=== PATIENT | male | born 1970 | race Caucasian/White ===

== ENCOUNTER 2017-04-03 08:00 | Outpatient (CLI) | payer MEDICAID | END 2017-04-03 08:01 | disposition home or self-care (01) | DX: Z13.6 Encounter for screening for cardiovascular disorders (principal) ==

== ENCOUNTER 2017-04-15 06:43 | Outpatient (CLI) | payer MEDICAID ==
--- NOTE | 2017-04-15 08:41 | MRI Preliminary Report ---
Exam: MRI Angio Brain W/O (MRA) IMPRESSION: Normal brain MRA. No stenoses or aneurysms. [facility] SITE ID: [id number]
--- NOTE | 2017-04-15 09:17 | MRI Report ---
EXAM MRA BRAIN EXAM DATE: 04/15/2017 08:11 AM. CLINICAL HISTORY: Family history of brain aneurysm. COMPARISON: None. TECHNIQUE: Multiplanar, multisequence MRA sequences of the brain were performed. Other: None. Post-pr ocessing: Multiplanar 3D MIP reconstructions. IV Contrast: None. FINDINGS: No evidence for cerebral aneurysm. No intracranial vertebrobasilar insufficiency. Patent distal internal carotid arteries. No proximal i ntracranial large artery flow-limiting stenosis, occlusion or filling defect. Patent anterior communi cating artery and bilateral posterior communicating arteries. The [place] appears to be comp lete. IMPRESSION: Normal brain MRA. No stenoses or aneurysms. [facility] Referring Provider Line: [phone] SITE ID: [id number]
== END 2017-04-15 06:44 | disposition home or self-care (01) ==
LOC: DI 06:43
PROVIDERS: ATTEND Nurse Practitioner Family
DX: Z82.0 Family history of epilepsy and other diseases of the nervous system (principal)
CPT/HCPCS: 70544

== ENCOUNTER 2020-10-24 13:42 | Outpatient (CLI) | payer MEDICAID ==
--- NOTE | 2020-10-24 13:58 | XRAY Report ---
PROCEDURE: Foot 3 View LT INDICATIONS: LEFT FOOT PAIN TECHNIQUE: 3 views of the foot were acquired. COMPARISON: None available FINDINGS: Bones: No acute fractures or dislocations. A remote appearing fracture fragment versus accessory oss icle can be seen along the lateral base of the first tarsometatarsal joint. No suspicious bony lesion s. An accessory ossicle is seen, an os trigonum. Soft tissues: No tibiotalar joint effusion. Achilles tendon appears normal. IMPRESSION: A cause of foot pain is identified on these plain films. Reviewed by: Dallas Delvalle MD on 10/24/2020 12:56 PM [facility] Approved by: Dallas Delvalle MD on 10/24/2020 12:56 PM [facility] Station ID: [id number]
== END 2020-10-24 23:59 | disposition home or self-care (01) ==
LOC: DI.S 13:42
PROVIDERS: ATTEND Physician Assistant Medical
DX: M79.672 Pain in left foot (principal)

== ENCOUNTER 2021-03-06 08:00 | Outpatient (CLI) | payer MEDICAID ==
[2021-03-06 15:14] LABS: BASOPHILS # (AUTO) 0.1 10^3/uL (0.0-0.1); BASOPHILS % (AUTO) 0.9 %; EOSINOPHILS # (AUTO) 0.1 10^3/uL (0.0-0.7); EOSINOPHILS % (AUTO) 1.4 %; HCT - HEMATOCRIT 43.2 % (42.0-52.0); HGB - HEMOGLOBIN 14.1 g/dL (14.0-18.0); LYMPHOCYTES # (AUTO) 2.3 10^3/uL (1.5-3.5); LYMPHOCYTES % (AUTO) 39.2 %; MEAN CORPUSCULAR HEMOGLOBIN 31.1 pg (27.0-31.0); MEAN CORPUSCULAR HGB CONC 32.6 g/dL (32.0-36.0); MEAN CORPUSCULAR VOLUME 95.4 fL (80.0-94.0); MEAN PLATELET VOLUME 9.6 fL (7.4-11.4); MONOCYTES # (AUTO) 0.8 10^3/uL (0.0-1.0); MONOCYTES % (AUTO) 13.2 %; NEUTROPHILS # (AUTO) 2.6 10^3/uL (1.5-6.6); NEUTROPHILS % (AUTO) 45.1 %; PLT - PLATELET COUNT 312 10^3/uL (130-450); RED BLOOD COUNT 4.53 10^6/uL (4.70-6.10); RED CELL DISTRIBUTION WIDTH 13.1 % (12.0-15.0); WHITE BLOOD COUNT 5.8 x10^3/uL (4.8-10.8)
[2021-03-06 15:36] LABS: CALCIUM 9.2 mg/dL (8.5-10.3); CREATININE 1.1 mg/dL (0.6-1.2); POTASSIUM 4.4 mmol/L (3.5-5.0)
== END 2021-03-06 08:01 | disposition home or self-care (01) ==
LOC: LAB.S 08:00
PROVIDERS: ATTEND Physician Assistant
DX: Z00.00 Encounter for general adult medical examination without abnormal findings (principal); Z82.0 Family history of epilepsy and other diseases of the nervous system; Z12.5 Encounter for screening for malignant neoplasm of prostate; Z13.6 Encounter for screening for cardiovascular disorders
CPT/HCPCS: 36415; 80048; 84153; 85025

== ENCOUNTER 2021-04-26 11:21 | Outpatient (CLI) | payer MEDICAID ==
[2021-04-28 23:10] VITALS: BP 110/70
--- NOTE | 2021-04-28 23:10 | SLEEP CARE CONSULTATION ---
Information from patient questionnaire entered by Alyson Alexander. I have reviewed and concur with the information entered by Alyson Alexander. This document represents the service I personally performed and the decisions made by me, Bull Mendoza MD, [facility]. History of Present Illness Service Date and Time: 04/26/2021 1121 Reason for Visit: New patient Chief Complaint: reports: Unrefreshed sleep, Snoring, Excessive daytime sleepiness, Observed pauses in breathing, Fatigue Date of Onset: 1 year Usual bedtime: midnight Time it takes to fall asleep: 30 minutes Snores at night: Yes Observed to quit breathing while asleep: Yes Sleeps alone due to snoring: No (not yet) Number of times waking at night: 3-5 Reasons for waking at night: reports: Bathroom, Other (unknown) Toss, Turn, or Twitch while sleeping: Yes Recalls having dreams: No Usually gets out of bed at: 0730 Feels refreshed in the morning: No Morning headache: Yes (an hour or two it resolves) Sleepy or fatigued during the day: Yes Ever fallen asleep while driving: Yes Takes day naps: Yes Dreams during day naps: No Prior sleep studies: No Additional HPI information: I had the pleasure of seeing Mr. Albarran today regarding the possibility of him having a sleep disorder. As you know, he is a 50 year old gentleman who complains of loud snore, frequent awakenings, unrefreshed sleep, morning headache, and excessive daytime sleepiness. He says that started last year, his snore has become louder. His has never seen him stop breathing. The patient tells me that he normally goes to bed around midnight, and it takes him approximately 30 minutes to fall asleep. He can recall waking up on the average of 3 - 5 times during the night. Most of the time he wakes up because of having to use the bathroom. He has woken up choking. There is a lot of tossing and turning in his sleep. No somniloquy (sleep talking) or somnambulism (sleep walking). Generally, there is no recollection of dreams. In the morning he us soriano gets up out of the bed around 7:30 a.m. not feeling refreshed nor rested. He usually does have a morning headache that lasts for 1 2 hours. During the day he complains of feeling sleepy and fatigued. His score on Ranger Sleepiness Scale is 12 out of 24. He never has fallen asleep while driving nor has had any accident due to sleepiness. He usually takes a 30-minute nap during the day. Upon falling asleep during the day he denies having vivid dreams. He reports having impaired concentration during the day. 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 Patient is and lives in [place]. Have you smoked in the past 12 months: No Alcohol use: No Caffeine use: Yes Caffeine amount and frequency: 2 cups coffee Family History Family history of sleep disordered breathing: No Family Hx Sleep Apnea: Father: Snoring Allergies and Home Medications Known drug allergies: No Drug allergies reviewed: Yes Home medication list reviewed: Yes Review of Systems Weight gain over past 5 years: 20 Cardiovascular: denies: high blood pressure, palpitations, chest pain, irregular heart rate or pulse, leg or foot swelling, have to sleep sitting up, other Respiratory: denies: shortness of breath, wheeze, sputum production, chronic cough, other Gastrointestinal: reports: diarrhea Urinary: reports: frequency Neurological: denies: headaches, seizure, head trauma, disorientation, speech dysfunction, gait or balance problems, fainting or unconsciousness, other Ear/Nose/Throat: reports: nasal congestion Endocrine: reports: sluggishness, too hot or cold Musculoskeletal: reports: neck pain Immunologic: reports: sneezing Physical Exam Vital signs obtained and entered by: Dr. Mendoza Blood Pressure: 110/70 Cuff size: regular Heart Rate: 56 O2 Saturation: 97 Height: 6 ft Weight: 180 lb Body Mass Index: 24.4 BMI Classification: Healthy weight Neck circumference: 15.5 Mood/affect: normal HEENT: No craniofacial malformation Nostrils: patent to airflow Turbinates: normal Septum: midline Mouth and throat: narrow oropharynx Soft palate: long Hard palate: normal Uvula: normal Uvula visualization: 25% Mallampati Class III Tongue: normal in size Tonsils: small Chin and jaw: normal size and position Neck: normal w/o lymphadenopathy or thyromegaly Heart: regular rate and rhythm Lungs: clear bilaterally Abdomen: soft Extremities: no edema or clubbing Neurologic: intact Impression and Plan IMPRESSION: 1. Obstructive Sleep Apnea-Hypopnea Syndrome, as suggested by history of loud and irregular snoring, frequent awakenings during the night, unrefreshed sleep, morning headache, cognitive impairment, and daytime hypersomnolence. Narrow oropharynx is a common predisposing factor for obstructive sleep apnea-hypopnea syndrome. I recommend proceeding to polysomnography to confirm the diagnosis and to assess severity. If he has significant sleep disordered breathing, a manual CPAP titration study will also be performed to find the optimal treatment pressure. I informed the patient of what the sleep studies involve and after some discussion, he agreed to proceed. Plan: 1. Schedule polysomnography + manual CPAP titration study and return in 1 to 2 weeks after the study to discuss result and initiate therapy. 2. Avoid long distance driving or when feeling sleepy. 3. Avoid alcohol, sedative and muscle relaxant around bedtime. Visit Type: In Office Time Spent with Patient (minutes): 15 Provider Statement: I spent 100% of the Face to Face Visit with the patient with greater than 50% spent counseling the patient and coordination of care.
== END 2021-04-26 11:22 | disposition home or self-care (01) ==
LOC: SC 11:21
PROVIDERS: ATTEND Internal Medicine Pulmonary Disease
DX: G47.10 Hypersomnia, unspecified (principal); R41.89 Other symptoms and signs involving cognitive functions and awareness; R51.9 Headache, unspecified; G47.8 Other sleep disorders; R06.83 Snoring
CPT/HCPCS: 99202; 99212

== ENCOUNTER 2021-05-17 10:57 | Outpatient (CLI) | payer MEDICAID ==
[2021-05-17 14:47] LABS: BASOPHILS % (AUTO) 0.5 %; EOSINOPHILS % (AUTO) 0.7 %; HCT - HEMATOCRIT 46.3 % (42.0-52.0); HGB - HEMOGLOBIN 15.6 g/dL (14.0-18.0); LYMPHOCYTES # (AUTO) 2.2 10^3/uL (1.5-3.5); LYMPHOCYTES % (AUTO) 36.3 %; MEAN CORPUSCULAR HGB CONC 33.7 g/dL (32.0-36.0); MEAN CORPUSCULAR VOLUME 94.9 fL (80.0-94.0); MEAN PLATELET VOLUME 9.7 fL (7.4-11.4); MONOCYTES # (AUTO) 0.6 10^3/uL (0.0-1.0); MONOCYTES % (AUTO) 10.5 %; NEUTROPHILS # (AUTO) 3.1 10^3/uL (1.5-6.6); NEUTROPHILS % (AUTO) 51.8 %; PLT - PLATELET COUNT 327 10^3/uL (130-450); RED BLOOD COUNT 4.88 10^6/uL (4.70-6.10); WHITE BLOOD COUNT 5.9 x10^3/uL (4.8-10.8)
[2021-05-17 15:38] LABS: BUN - BLOOD UREA NITROGEN 18 mg/dL (6-20); CALCIUM 9.7 mg/dL (8.5-10.3); CARBON DIOXIDE - CO2 25 mmol/L (21-32); CHLORIDE 102 mmol/L (101-111); CHOL/HDL RATIO 2.5 (<5.0); CHOLESTEROL 200 mg/dL; CREATININE 1.1 mg/dL (0.6-1.2); GFR - MDRD 71 (>89); GLUCOSE 91 mg/dL (70-100); HDL CHOLESTEROL 80 mg/dL; LDL CHOLESTEROL,CALCULATED 109 mg/dL; LDL/HDL RATIO 1.4 (<3.6); SODIUM 137 mmol/L (135-145); TRIGLYCERIDES 54 mg/dL; VLDL CHOLESTEROL 11 mg/dL
[2021-05-17 15:46] LABS: THYROID STIMULATING HORMONE 1.12 uIU/mL (0.34-5.60)
== END 2021-05-17 10:58 | disposition home or self-care (01) ==
LOC: LAB.S 10:57
PROVIDERS: ATTEND Physician Assistant
DX: Z00.00 Encounter for general adult medical examination without abnormal findings (principal); R68.89 Other general symptoms and signs; R19.7 Diarrhea, unspecified; Z82.0 Family history of epilepsy and other diseases of the nervous system; Z12.5 Encounter for screening for malignant neoplasm of prostate; Z13.6 Encounter for screening for cardiovascular disorders
CPT/HCPCS: 36415; 80048; 80061; 83721; 84153; 84443; 85025

== ENCOUNTER 2021-09-21 08:00 | Outpatient (CLI) | payer MEDICAID | END 2021-09-21 23:59 | LOC: LAB.S 08:00 | PROVIDERS: ATTEND Emergency Medicine | DX: J06.9 Acute upper respiratory infection, unspecified (principal); Z20.822 Contact with and (suspected) exposure to COVID-19 ==

== ENCOUNTER 2021-11-01 09:47 | Outpatient (CLI) | payer MEDICAID ==
--- NOTE | 2021-11-01 09:59 | SLEEP CARE CONSULTATION ---
Information from patient questionnaire entered by Evelina Batres MA. I have reviewed and concur with the information entered by Evelina Batres MA. This document represents the service I personally performed and the decisions made by me, Bull Mendoza MD, [facility]. History of Present Illness Service Date and Time: 11/01/2021 0947 Reason for follow up: six month (RE ORDER SLEEP STUDY) HPI additional information: Mr. Albarran today regarding the possibility of him having a sleep disorder. As you know, he is a 50 year old gentleman who complains of loud snore, frequent awakenings, unrefreshed sleep, morning headache, and excessive daytime sleepiness. He says that started last year, his snore has become louder. His has never seen him stop breathing but says he makes gurgling sounds at night. A sleep study was ordered last year but due to our limited capacity we had to reschedule him. He then canceled one appointment and did not return until today. Allergies and Home Medications Drug allergies reviewed: Yes Home medication list reviewed: Yes Review of Systems Review of systems same as previous: Yes Physical Exam Vital signs obtained and entered by: Stephanie BATRES CMA [facility] Impression and Plan IMPRESSION: 1. Obstructive Sleep Apnea-Hypopnea Syndrome, as suggested by history of loud and irregular snoring, frequent awakenings during the night, unrefreshed sleep, morning headache, cognitive impairment, and daytime hypersomnolence. Narrow oropharynx is a common predisposing factor for obstructive sleep apnea-hypopnea syndrome. I reorder the in-laboratory polysomnography. Plan: 1. Schedule polysomnography and return in 1 to 2 weeks after the study to discuss result and initiate therapy. 2. Avoid long distance driving or when feeling sleepy. 3. Avoid alcohol, sedative and muscle relaxant around bedtime. Visit Type: Telehealth Video Patient Location: Home Location of Provider: Office Patient agrees and consents to this telehealth visit type: Yes Patient agrees to have their insurance billed: Yes Time Spent with Patient (minutes): 15 Provider Statement: I spent 100% of the Telehealth Video Call with the patient with greater than 50% spent counseling the patient and coordination of care.
== END 2021-11-01 09:48 | disposition home or self-care (01) ==
LOC: SC 09:47
PROVIDERS: ATTEND Internal Medicine Pulmonary Disease
DX: G47.10 Hypersomnia, unspecified (principal); R51.9 Headache, unspecified; R06.83 Snoring; G47.8 Other sleep disorders; R41.89 Other symptoms and signs involving cognitive functions and awareness

== ENCOUNTER 2021-11-17 19:38 | Outpatient (CLI) | payer MEDICAID | END 2021-11-17 19:39 | disposition home or self-care (01) | LOC: SC 19:38 | PROVIDERS: ATTEND Internal Medicine Pulmonary Disease | DX: G47.10 Hypersomnia, unspecified (principal); G47.8 Other sleep disorders; R53.83 Other fatigue; R51.9 Headache, unspecified; R06.83 Snoring; F81.9 Developmental disorder of scholastic skills, unspecified; G47.61 Periodic limb movement disorder | CPT/HCPCS: 95810 ==

== ENCOUNTER 2021-12-06 09:42 | Outpatient (CLI) | payer MEDICAID ==
--- NOTE | 2021-12-06 12:11 | SLEEP CARE CONSULTATION ---
Information from patient questionnaire entered by Evelina Batres MA. I have reviewed and concur with the information entered by Evelina Batres MA. This document represents the service I personally performed and the decisions made by me, Bull Mendoza MD, [facility]. History of Present Illness Service Date and Time: 12/06/2021 0942 Additional HPI information: Mr. Albarran returned for follow up of the sleep study he had on 11/17/2021. The polysomnography showed that the patient had normal sleep efficiency. The sleep architecture was normal. Respiratory monitoring showed no significant sleep disordered breathing (AHI = 4.4) or hypoxia (jess oxygen saturation of 90%). The respiratory events occurred independently of sleep stage and body position (supine AHI = 3.3; non-supine = 5.30). Snore was light to loud in intensity. There was severe periodic leg movement of sleep not associated with sleep fragmentation. Cardiac rhythm was normal sinus rhythm without significant arrhythmia. No abnormal behavior (parasomnia) observed during the night. The patient was informed of these findings. I explained to him the pathophysiology behind upper airway resistance syndrome. He denies having restless leg syndrome. Sleep Study - Results Type of Sleep Study: Polysomnography (F/U POLY) Allergies and Home Medications Drug allergies reviewed: Yes Home medication list reviewed: Yes Physical Exam Vital signs obtained and entered by: N/A Impression and Plan IMPRESSION: 1. Upper airway resistance syndrome, possibly causing some of the patients symptoms-- frequent awakenings during the night, unrefreshed sleep, morning headache, cognitive impairment, and daytime hypersomnolence. The patient would like to try the positive airway pressure therapy if it is covered by his insurance [employer]. PLAN: 1. Prescription made for an autoCPAP, heated humidifier, and related supplies. The pressure will be set at 5 15 cmH2O. 2. Return for follow up after one month of using the CPAP. 3. Consider retesting in a year if he cannot get the CPAP based on the diagnosis of upper airway resistance syndrome. Prescriptions: Auto CPAP Follow up with Sleep Care in: 1-2 months Visit Type: Telehealth Video Patient Location: Home Location of Provider: Office Patient agrees and consents to this telehealth visit type: Yes Patient agrees to have their insurance billed: Yes Time Spent with Patient (minutes): 15 Provider Statement: I spent 100% of the Telehealth Video Call with the patient with greater than 50% spent counseling the patient and coordination of care.
== END 2021-12-06 09:43 | disposition home or self-care (01) ==
LOC: SC 09:42
PROVIDERS: ATTEND Internal Medicine Pulmonary Disease
DX: G47.8 Other sleep disorders (principal)

== ENCOUNTER 2021-12-27 14:14 | Outpatient (CLI) | payer MEDICAID ==
--- NOTE | 2021-12-27 16:42 | XRAY Report ---
PROCEDURE: Shoulder 3 View RT INDICATIONS: PAIN IN RIGHT SHOULDER TECHNIQUE: 3 views of the shoulder were acquired. COMPARISON: None. FINDINGS: Bones: No fractures or dislocations. No suspicious bony lesions. Visualized ribs appear intact. Soft tissues: Prominent calcific tendinitis is present. IMPRESSION: No visualized acute fracture or dislocation. However, occult injury cannot be excluded. Recommend short interval imaging follow-up in 7-10 days as clinically indicated for additional evalua tion. Reviewed by: Frances Heller MD on 12/27/2021 4:40 PM PDT Approved by: Frances Heller MD on 12/27/2021 4:40 PM PDT Station ID: [id number]
== END 2021-12-27 14:15 | disposition home or self-care (01) ==
LOC: DI 14:14
PROVIDERS: ATTEND Registered Nurse
DX: M25.511 Pain in right shoulder (principal)

== ENCOUNTER 2023-01-05 07:53 | Outpatient (CLI) | payer MEDICAID ==
[2023-01-05 14:53] LABS: BASOPHILS # (AUTO) 0.1 10^3/uL (0.0-0.1); BASOPHILS % (AUTO) 0.9 %; EOSINOPHILS # (AUTO) 0.1 10^3/uL (0.0-0.7); EOSINOPHILS % (AUTO) 1.8 %; HCT - HEMATOCRIT 41.6 % (42.0-52.0); HGB - HEMOGLOBIN 13.8 g/dL (14.0-18.0); LYMPHOCYTES # (AUTO) 2.2 10^3/uL (1.5-3.5); LYMPHOCYTES % (AUTO) 38.2 %; MEAN CORPUSCULAR HEMOGLOBIN 31.8 pg (27.0-31.0); MEAN CORPUSCULAR HGB CONC 33.2 g/dL (32.0-36.0); MEAN CORPUSCULAR VOLUME 95.9 fL (80.0-94.0); MEAN PLATELET VOLUME 9.6 fL (7.4-11.4); MONOCYTES # (AUTO) 0.7 10^3/uL (0.0-1.0); MONOCYTES % (AUTO) 13.1 %; NEUTROPHILS # (AUTO) 2.6 10^3/uL (1.5-6.6); NEUTROPHILS % (AUTO) 45.6 %; PLT - PLATELET COUNT 331 10^3/uL (130-450); RED BLOOD COUNT 4.34 10^6/uL (4.70-6.10); RED CELL DISTRIBUTION WIDTH 12.8 % (12.0-15.0); WHITE BLOOD COUNT 5.7 x10^3/uL (4.8-10.8)
[2023-01-05 15:32] LABS: ALBUMIN 4.1 g/dL (3.2-5.5); ALBUMIN/GLOBULIN RATIO 1.7 (1.0-2.2); BILIRUBIN,TOTAL 0.6 mg/dL (0.2-1.0); CALCIUM 8.8 mg/dL (8.5-10.3); CREATININE 1.1 mg/dL (0.6-1.2); POTASSIUM 4.3 mmol/L (3.5-5.0); TOTAL PROTEIN 6.5 g/dL (6.7-8.2)
[2023-01-05 15:34] LABS: THYROID STIMULATING HORMONE 2.32 uIU/mL (0.34-5.60)
== END 2023-01-05 07:54 | disposition home or self-care (01) ==
LOC: LAB.S 07:53
PROVIDERS: ATTEND Physician Assistant Medical
DX: R68.82 Decreased libido (principal); R61 Generalized hyperhidrosis; Z13.228 Encounter for screening for other metabolic disorders; Z13.0 Encounter for screening for diseases of the blood and blood-forming organs and certain disorders involving the immune mechanism; Z13.29 Encounter for screening for other suspected endocrine disorder; Z12.5 Encounter for screening for malignant neoplasm of prostate
CPT/HCPCS: 36415; 80053; 84153; 84403; 84443; 85025